=== PATIENT | female | born 1970 | race Caucasian/White ===

== ENCOUNTER 2019-01-07 20:43 | Inpatient (IN) | payer MEDICAID ==
[~2019-01-07] VITALS: Ht 170.2 cm; Wt 107.0 kg
[2019-01-07 20:55] VITALS: Ht 170.2 cm; Wt 107.0 kg
[2019-01-07 23:59] LABS: BASOPHIL % 0.1 % (0-2); PLATELET COUNT 274 x10^3mcL (130-400)
[2019-01-08 00:08] LABS: CALCIUM 8.5 mg/dL (8.5-10.1); CARBON DIOXIDE 27.4 mmol/L (21-32); CHLORIDE SERUM 103 mmol/L (98-107); CREATININE SERUM 0.9 mg/dL (0.6-1.0); GFR1 > 60 mL/min; GLUCOSE SERUM 128 mg/dL (74-106); POTASSIUM SERUM 3.3 mmol/L (3.5-5.1); SODIUM SERUM 139 mmol/L (136-145)
[2019-01-08 00:12] LABS: ALBUMIN 3.7 g/dL (3.4-5.0); ALKALINE PHOSPHATASE 140 U/L (46-116); ALT/SGPT 222 U/L (14-59); AST/SGOT 190 U/L (15-37); BILIRUBIN TOTAL 1.7 mg/dL (0.20-1.00); LIPASE 156 IU/L (73-393); TOTAL PROTEIN, SERUM 7.9 g/dL (6.4-8.2)
[2019-01-08 00:13] LABS: UA SPECIFIC GRAVITY >=1.030 (1.005-1.035); microscopic required? YES; urine erythrocyte TRACE (NEGATIVE)
[2019-01-08] MEDS ORDERED: PRILOSEC OTC20 M1 (01:21)
[2019-01-08 02:14] VITALS: BP 182/70
[2019-01-08 02:40] LABS: CHOLESTEROL/HDL RATIO 4.8; PHOSPHOROUS 3.2 mg/dL (2.5-4.9)
[2019-01-08 05:19] VITALS: BP 169/67
[2019-01-08 06:33] LABS: BASOPHIL % 0.3 % (0-2); PLATELET COUNT 224 x10^3mcL (130-400)
[2019-01-08 06:49] LABS: CALCIUM 8.4 mg/dL (8.5-10.1); CARBON DIOXIDE 25.6 mmol/L (21-32); CHLORIDE SERUM 105 mmol/L (98-107); CREATININE SERUM 0.8 mg/dL (0.6-1.0); GFR1 > 60 mL/min; GLUCOSE SERUM 142 mg/dL (74-106); POTASSIUM SERUM 4.1 mmol/L (3.5-5.1); SODIUM SERUM 140 mmol/L (136-145)
[2019-01-08 07:45] LABS: RED CELL DISTRIBUTION WIDTH 18.1 % (11.5-14.5)
[2019-01-08 09:29] VITALS: BP 117/63
[2019-01-08 11:56] LABS: ALBUMIN 3.3 g/dL (3.4-5.0); BILIRUBIN DIRECT 1.56 mg/dL (0.0-0.2); BILIRUBIN TOTAL 2.1 mg/dL (0.20-1.00); TOTAL PROTEIN, SERUM 6.6 g/dL (6.4-8.2)
[2019-01-08 14:05] VITALS: BP 141/66
[2019-01-08 16:48] VITALS: BP 117/51
[2019-01-08 20:14] VITALS: BP 142/63
[2019-01-09 04:55] VITALS: BP 165/73
[2019-01-09 07:01] LABS: BASOPHIL % 0.7 % (0-2); PLATELET COUNT 216 x10^3mcL (130-400)
[2019-01-09 07:04] LABS: CALCIUM 8.2 mg/dL (8.5-10.1); CARBON DIOXIDE 29.5 mmol/L (21-32); CHLORIDE SERUM 108 mmol/L (98-107); CREATININE SERUM 0.8 mg/dL (0.6-1.0); GFR1 > 60 mL/min; GLUCOSE SERUM 96 mg/dL (74-106); MAGNESIUM 2.1 mg/dL (1.8-2.4); POTASSIUM SERUM 4.3 mmol/L (3.5-5.1); SODIUM SERUM 143 mmol/L (136-145)
[2019-01-09 07:14] LABS: RED CELL DISTRIBUTION WIDTH 18.4 % (11.5-14.5)
[2019-01-09 10:17] VITALS: BP 132/66
[2019-01-09 14:30] VITALS: BP 153/66
[2019-01-09 18:31] VITALS: BP 155/89
[2019-01-09 19:56] VITALS: BP 154/74
[2019-01-10 05:09] VITALS: BP 137/59
[2019-01-10 07:36] LABS: CALCIUM 8.4 mg/dL (8.5-10.1); CHLORIDE SERUM 105 mmol/L (98-107); CREATININE SERUM 0.9 mg/dL (0.6-1.0); GFR1 > 60 mL/min; GLUCOSE SERUM 98 mg/dL (74-106); POTASSIUM SERUM 3.9 mmol/L (3.5-5.1); SODIUM SERUM 141 mmol/L (136-145)
[2019-01-10 08:11] LABS: BASOPHIL % 0.6 % (0-2); PLATELET COUNT 222 x10^3mcL (130-400)
[2019-01-10 08:13] LABS: RED CELL DISTRIBUTION WIDTH 18.1 % (11.5-14.5)
[2019-01-10 08:14] LABS: rbc morphology (normal/abnorm) ABNORMAL (NORMAL)
[2019-01-10 09:48] VITALS: BP 179/78
[2019-01-10 09:54] LABS: BILIRUBIN DIRECT 0.15 mg/dL (0.0-0.2); BILIRUBIN TOTAL 0.34 mg/dL (0.20-1.00); TOTAL PROTEIN, SERUM 6.6 g/dL (6.4-8.2)
[2019-01-10] MEDS ORDERED: NOR5 PO (10:48)
[2019-01-10] MEDS ORDERED: ZESTRIL20 MG PO (10:48)
[2019-01-10 12:16] VITALS: BP 133/57
[2019-01-10 13:36] VITALS: BP 133/57
[2019-01-10 16:35] VITALS: BP 135/46
[2019-01-10 20:40] VITALS: BP 137/50
[2019-01-11 05:10] VITALS: BP 109/42
[2019-01-11 10:42] VITALS: BP 157/76
[2019-01-11 16:57] VITALS: BP 150/76
[2019-01-11 21:24] VITALS: BP 156/62
[2019-01-12 05:24] VITALS: BP 152/65
[2019-01-12 06:33] LABS: BASOPHIL % 0.2 % (0-2); PLATELET COUNT 296 x10^3mcL (130-400)
[2019-01-12 06:35] LABS: RED CELL DISTRIBUTION WIDTH 18.7 % (11.5-14.5)
[2019-01-12 06:38] LABS: CALCIUM 9.5 mg/dL (8.5-10.1); CHLORIDE SERUM 102 mmol/L (98-107); GFR1 > 60 mL/min; GLUCOSE SERUM 106 mg/dL (74-106); POTASSIUM SERUM 4.3 mmol/L (3.5-5.1); SODIUM SERUM 139 mmol/L (136-145)
[2019-01-12 09:15] VITALS: BP 166/74
[2019-01-12 17:28] VITALS: BP 171/67
[2019-01-12 20:49] VITALS: BP 151/66
[2019-01-13 06:21] LABS: BASOPHIL % 0.3 % (0-2); PLATELET COUNT 233 x10^3mcL (130-400)
[2019-01-13 06:23] VITALS: BP 143/61
[2019-01-13 06:26] LABS: CALCIUM 8.6 mg/dL (8.5-10.1); CARBON DIOXIDE 30.5 mmol/L (21-32); CHLORIDE SERUM 105 mmol/L (98-107); CREATININE SERUM 0.8 mg/dL (0.6-1.0); GFR1 > 60 mL/min; GLUCOSE SERUM 98 mg/dL (74-106); POTASSIUM SERUM 3.9 mmol/L (3.5-5.1); SODIUM SERUM 140 mmol/L (136-145)
[2019-01-13 07:00] LABS: RED CELL DISTRIBUTION WIDTH 19.1 % (11.5-14.5)
[2019-01-13 09:04] VITALS: BP 151/75
[2019-01-13 11:23] VITALS: BP 151/75
== END 2019-01-13 12:55 | disposition home or self-care (01) | DRG 263 ==
LOC: ED 20:43 → MU 01-08 00:53 → DU 01-08 00:53 → MU 01-10 12:28
PROVIDERS: Emergency Medicine; Family Medicine; Internal Medicine Gastroenterology; Surgery; ADMIT Internal Medicine
PROC: 0DB78ZX Excision of Stomach, Pylorus, Via Natural or Artificial Opening Endoscopic, Diagnostic (ICD-10-PCS; 2019-01-10 10:00)
PROC: 0FT44ZZ Resection of Gallbladder, Percutaneous Endoscopic Approach (ICD-10-PCS; principal; 2019-01-11 08:00)
DX: K80.10 Calculus of gallbladder with chronic cholecystitis without obstruction (principal); N17.0 Acute kidney failure with tubular necrosis; N39.0 Urinary tract infection, site not specified; D50.9 Iron deficiency anemia, unspecified; E66.9 Obesity, unspecified; E78.5 Hyperlipidemia, unspecified; R74.0 Nonspecific elevation of levels of transaminase and lactic acid dehydrogenase [LDH]; R80.9 Proteinuria, unspecified; Z68.37 Body mass index [BMI] 37.0-37.9, adult
CPT/HCPCS: 43235; 78226; 83880; 94150; A9537; J0690; J1170; J1200; J1610; J1885; J1940; J2250; J2270; J2310; J2405; J2543; J2916; J3010; J3490; J7030; Q0092

== ENCOUNTER 2019-01-18 09:09 | Emergency (ER) | payer MEDICAID ==
[~2019-01-18] VITALS: Ht 165.1 cm; Wt 102.1 kg
[~2019-01-18 09:09] MED LIST: NOR5 PO; PRILOSEC OTC20 M1; ZESTRIL20 MG PO
[2019-01-18 09:19] VITALS: BP 151/64; Ht 165.1 cm; Wt 102.1 kg
== END 2019-01-18 10:10 | disposition home or self-care (01) ==
LOC: ED 09:09
DX: Z48.01 Encounter for change or removal of surgical wound dressing (principal)